=== PATIENT | female | born 1960 | race African-American/Black ===

== ENCOUNTER 2016-10-27 14:14 | Inpatient (IN) | payer OTHER ==
[2016-10-27 16:29] VITALS: BMI 25.7
--- NOTE | 2016-10-27 16:54 | HP ---
[id number] 4d 4-Moderate,w/Arms Extend Anxiety: 4-Mod. Anxious/Guarded Agitation: 4-Moderately Restless Paroxysmal Sweats: 1-Minimal Palms Moist Orientation: 1-Uncertain about Date Tacttile Disturbances: 0-None Auditory Disturbances: 0-None Visual Disturbances: 0-None Headache: 0-None Present CIWA-Ar Total Score: 15 Admission ROS BHS - HPI Chief Complaint: withdrawal sx Allergies/Adverse Reactions: Allergies Allergy/AdvReac Type Severity Reaction Status Date / Time Fish Containing Products Allergy Severe Hives Verified 10/27/16 16:50 No Known Drug Allergies Allergy Verified 10/27/16 16:50 History of Present Illness: 56 years old female with long history of alcohol cocaine marijuana nicotine dependence, has asthma, copd, hiv with neuropathy, hyperlipidemia and bipolar II IS ADMITTED TO DETOX Exam Limitations: No Limitations - Ebola screening Have you traveled outside of the country in the last 21 days: No Have you had contact with anyone from an Ebola affected area: No Have you been sick,other than usual withdrawal symptoms: No Do you have a fever: No - Review of Systems Constitutional: Chills, Changes in sleep, Weight Stable EENT: reports: Nose Congestion, Dental Problems (NO TEETH, NO DENTURE), Other ( EYE GLASSES) Respiratory: reports: SOB with Exertion, Productive cough Cardiac: reports: No Symptoms Reported GI: reports: Nausea, Poor Fluid Intake, Abdominal cramping : reports: No Symptoms Reported Musculoskeletal: reports: Back Pain, Joint Pain (RIGHT ANKLE FX BY HISTORY) Integumentary: reports: No Symptoms Reported Neuro: reports: Tingling (HANDS), Tremors Endocrine: reports: No Symptoms Reported Hematology: reports: No Symptoms Reported Psychiatric: reports: Judgement Intact, Anxious, Depressed Other Systems: Reviewed and Negative Patient History - Patient Medical History Hx Anemia: No Hx Asthma: Yes Hx Chronic Obstructive Pulmonary Disease (COPD): Yes Hx Cancer: No Hx Cardiac Disorders: No Hx Congestive Heart Failure: No Hx Hypertension: No Hx Hypercholesterolemia: Yes Hx Pacemaker: No HX Cerebrovascular Accident: No Hx Seizures: No Hx Dementia: No Hx Diabetes: No Hx Gastrointestinal Disorders: No Hx Liver Disease: No Hx Genitourinary Disorders: Yes (CHLAMYDIA,GC AND TRICHOMONAS.HSV) Hx Sexually Transmitted Disorders: Yes Hx Renal Disease (ESRD): No Hx Thyroid Disease: No Hx Human Immunodeficiency Virus (HIV): Yes (AIDS) Hx Hepatitis C: No Hx Depression: No Hx Suicide Attempt: Yes (TRIED TO SLASH WRIST) Hx Bipolar Disorder: Yes Hx Schizophrenia: No - Patient Surgical History Past Surgical History: Yes Hx Neurologic Surgery: No Hx Cataract Extraction: No Hx Cardiac Surgery: No Hx Lung Surgery: No Hx Breast Surgery: No Hx Breast Biopsy: No Hx Abdominal Surgery: No Hx Appendectomy: No Hx Cholecystectomy: No Hx Genitourinary Surgery: No Hx Section: No Hx Orthopedic Surgery: Yes (RT.ANKLE) Hx Hysterectomy: No Anesthesia Reaction: No - PPD History Previous Implant?: Yes Documented Results: Negative w/proof Implanted On Prior R Admission?: Yes Date: 11/30/14 PPD to be Administered?: Yes - Reproductive History Patient is a Female of Child Bearing Age (11 -55 yrs old): Yes Last Menstrual Period: 08/26/16 Patient : No - Smoking Cessation Smoking history: Current every day smoker Have you smoked in the past 12 months: Yes Aproximately how many cigarettes per day: 5 Cigars Per Day: 0 Hx Chewing Tobacco Use: No Initiated information on smoking cessation: Yes 'Breaking Loose' booklet given: 10/27/16 - Substance & Tx. History Hx Alcohol Use: Yes Hx Substance Use: Yes Substance Use Type: Alcohol, Cocaine, Marijuana Hx Substance Use Treatment: Yes - Substances Abused Cocaine Route: Inhalation Frequency: Daily Amount used: $100 Age of first use: 30 Date of Last Use: 10/24/16 Alcohol-whisky/beer Route: Oral Frequency: Daily Amount used: 1-2 pts./1-2 6pks. Age of first use: 14 Date of Last Use: 10/26/16 Marijuana Route: Smoking Frequency: Daily Amount used: $20 Age of first use: 21 Date of Last Use: 10/25/16 Family Disease History - Family Disease History Family Disease History: Diabetes: Mother, Heart Disease: Mother, Sister (ALCOHOL ), Other: Brother (ALCOHOL), Sister Admission Physical Exam BHS - Vital Signs Vital Signs: Vital Signs - 24 hr 10/27/16 16:26 Temperature 96.9 F L Pulse Rate 81 Respiratory 20 Rate Blood Pressure 106/69 - Physical General Appearance: Yes: Nourished, Appropriately Dressed, Mild Distress, Tremorous, Irritable, Sweating, Anxious HEENTM: Yes: Hearing grossly Normal, Normal ENT Inspection, Normocephalic, Normal Voice Respiratory: Yes: Chest Non-Tender, Lungs Clear, Normal Breath Sounds, No Respiratory Distress, No Accessory Muscle Use Neck: Yes: Supple, Trachea in good position Breast: Yes: Breasts Symetrical Cardiology: Yes: Regular Rhythm, Regular Rate, S1, S2 Abdominal: Yes: Non Tender, Soft Genitourinary: Yes: Within Normal Limits Back: Yes: Normal Inspection Musculoskeletal: Yes: full range of Motion, Gait Steady, Back pain, Muscle Pain (RIGHT ANKLE) Extremities: Yes: Normal Inspection, Normal Range of Motion, Non-Tender, Tremors Neurological: Yes: Alert, Motor Strength 5/5, Normal Response, Depressed Affect Integumentary: Yes: Warm Lymphatic: Yes: Within Normal Limits - Diagnostic (1) AIDS (acquired immune deficiency syndrome) Current Visit: Yes Status: Chronic (2) Asthma Current Visit: Yes Status: Chronic Qualifiers: Asthma severity: mild persistent Asthma complication type: with status asthmaticus Qualified Code(s): J45.32 - Mild persistent asthma with status asthmaticus (3) Hyperlipidemia Current Visit: Yes Status: Chronic Qualifiers: Hyperlipidemia type: pure hypercholesterolemia Qualified Code(s): E78.00 - Pure hypercholesterolemia, unspecified; E78.0 - Pure hypercholesterolemia (4) Alcohol dependence with uncomplicated withdrawal Current Visit: Yes Status: Acute (5) COPD (chronic obstructive pulmonary disease) Current Visit: Yes Status: Chronic Qualifiers: COPD type: emphysema Emphysema type: other Qualified Code(s): J43.8 - Other emphysema (6) 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 Current Visit: Yes Status: Chronic (7) GERD (gastroesophageal reflux disease) Current Visit: Yes Status: Chronic Qualifiers: Esophagitis presence: without esophagitis Qualified Code(s): K21.9 - Gastro-esophageal reflux disease without esophagitis (8) Dry eye Current Visit: Yes Status: Chronic (9) HSV infection Current Visit: Yes Status: Chronic (10) Toenail fungus Current Visit: Yes Status: Chronic Cleared for Admission BHS - Detox or Rehab S Level of Care: Medically Managed Detox Regimen/Protocol: Librium BHS Breath Alcohol Content Breath Alcohol Content: 0 Vital Signs - Vital Signs Vital Signs Refused: No Temperature: 96.9 F Temperature Source: Oral Pulse Rate: 81 Respiratory Rate: 20 Blood Pressure: 106/69 BP Location: Left Arm Blood Pressure Position: Sitting - Height Height: 5 ft 7 in - Weight Weight: 164 lb Weight Measurement Method: Standing Scale Body Mass Index (BMI): 25.7 - Bowel Function Bowel Movement: Yes Urine Pregancy Test - Result Urine Test Results: Negative- NO Line Present Urine Drug Screen - Control Is Test Valid: Yes - Results Drug Screen Negative: No Urine Drug Screen Results: THC-Marijuana, JACKIE-Cocaine
[2016-10-27] MEDS ORDERED: MAGNESIUM HYDROX 2400MG/30ML ORAL SUSPENSION 30 ML CUP PO PRN (17:03)
[2016-10-27] MEDS ORDERED: NICOTINE POLACRILEX 2 MG GUM BC PRN (17:03)
[2016-10-27] MEDS ORDERED: guaiFENesin/D-METHORPHAN HB 10 ML UNIT-DOSE CUPS PO PRN (17:03)
[2016-10-27] MEDS ORDERED: MAGNESIUM CITRATE 300 ML BOTTLE PO PRN (17:03)
[2016-10-27] MEDS ORDERED: MENTHOL/PHENOL 1 EACH UD MM PRN (17:03)
[2016-10-27] MEDS ORDERED: chlordiazePOXIDE HCL 25 MG CAPSULE PO PRN (17:03)
[2016-10-27] MEDS ORDERED: MAG HYDROX/AL HYDROX/SIMETH 30 ML UNIT-DOSE CUP PO PRN (17:03)
[2016-10-27] MEDS ORDERED: LOPERAMIDE HCL 2 MG CAPSULE PO PRN (17:03)
[2016-10-27] MEDS ORDERED: hydrOXYzine PAMOATE 50 MG CAPSULE (FP) PO PRN (17:03)
[2016-10-27] MEDS ORDERED: P-EPHED 60MG/TRIPROLIDI 2.5MG TABLET PO PRN (17:03)
[2016-10-27] MEDS ORDERED: diphenhydrAMINE HCL 50 MG CAPSULE PO PRN (17:03)
[2016-10-27] MEDS ORDERED: ALBUTEROL SO4 6.7 GM HFA INHALER IH PRN (17:05)
[2016-10-27] MEDS: ARTIFICIAL TEARS (POLYVINYL ALCOHOL 1.4%) OPTH DROPS OU SCH ×3 (19:30→22:25)
[2016-10-27] MEDS: ALBUTEROL SO4 2.5/IPRATROPIUM 0.5 INH SOL 3 ML VIAL.NEB. NEB PRN (20:11)
[2016-10-27] MEDS ORDERED: RANITIDINE HCL 150 MG TABLET (FP) PO SCH (22:00)
[2016-10-27] MEDS: MINERAL OIL/PETROLAT/WATER TOPICAL CREAM 113 GM JAR TP SCH (22:25)
[2016-10-27] MEDS: CLOTRIMAZOLE 1% CREAM 15 GM TUBE TP SCH (22:25)
[2016-10-27] MEDS: ACLIDINIUM BROMIDE 400 MCG/INH AERO.POWD IH SCH (22:35)
[2016-10-27] MEDS: chlordiazePOXIDE HCL 25 MG CAPSULE PO SCH (22:37)
[2016-10-27] MEDS: ATORVASTATIN CA 40 MG TABLET (FP) PO SCH (22:37)
[2016-10-27] MEDS: GABAPENTIN 300 MG CAPSULE (FP) PO SCH (22:37)
[2016-10-27] MEDS: THIAMINE HCL 100 MG TABLET (FP) PO SCH (22:37)
[2016-10-27 23:22] LABS: URINE APPEARANCE SLCLOUDY; URINE BILIRUBIN NEGATIVE (NEGATIVE); URINE BLOOD NEGATIVE (NEGATIVE); URINE COLOR YELLOW; URINE GLUCOSE (UA) NEGATIVE (NEGATIVE); URINE KETONE NEGATIVE (NEGATIVE); URINE LEUK ESTERASE NEGATIVE (NEGATIVE); URINE NITRITE NEGATIVE (NEGATIVE); URINE PROTEIN NEGATIVE (NEGATIVE); URINE UROBILINOGEN NEGATIVE E.U./dl (0.2-1.0)
[2016-10-28] MEDS: chlordiazePOXIDE HCL 25 MG CAPSULE PO SCH ×4 (06:01→22:33)
[2016-10-28] MEDS ORDERED: buPROPion HCL 100 MG TABLET PO ONE (09:10)
[2016-10-28] MEDS ORDERED: GABAPENTIN 300 MG CAPSULE (FP) PO SCH (10:00)
[2016-10-28] MEDS ORDERED: ERGOCALCIFEROL (VITAMIN D2) 50,000 UNIT CAPSULE (FP) PO SCH (10:00)
[2016-10-28 10:14] LABS: MCH 32.9 pg (25.7-33.7); MCHC 33.5 g/dl (32.0-36.0); MEAN CELL VOLUME 98.4 fl (80-96); PLATELET COUNT 363 K/MM3 (134-434); RDW 14.6 % (11.6-15.6)
--- NOTE | 2016-10-28 10:16 | CONSULT ---
[facility] Psychiatric Consult - Data Date of interview: 10/28/16 Admission source: [facility] Identifying data: This is 56 years old female with psychiatric hospitalization history, history of Schizoaffec tive disorder and PTSD, intoxicated with: Alcohol and Cocaine Substance Abuse History: - Smoking Cessation. Smoking history: Current every day smoker. Have you smoked in the past 12 months: Yes. Aproximately how many cigarettes per day: 5. Cigars Per Day: 0. Hx Chewing Tobacco Use: No. Initiated information on smoking cessation: Yes. 'Breaking Loose' booklet given : 10/27/16. - Substance & Tx. History. Hx Alcohol Use: Yes. Hx Substance Use : Yes. Substance Use Type: Alcohol, Cocaine, Marijuana. Hx Substance Use Treatment: Yes Medical History: AIDS, Asthma, COPD, Hyperlipidemia, HIV, HTN Psychiatric History: Patient report sto carry PTSD, as per comp[uterb there isn a history of chizaffective disorder with most recent admission on more then 10 years ago, reports taking prior to admission: Gabapentin 600mg po bid. Wellbutrin 100mg po bid Physical/Sexual Abuse/Trauma History: Denies Additional Comment: Gabapentin 600mg po bid. Wellbutrin 100mg po bid Mental Status Exam - Mental Status Exam Alert and Oriented to: Person Cognitive Function: Fair Patient Appearance: Unkempt Mood: Sad Affect: Flat Patient Behavior: Sedated Speech Pattern: Delayed Voice Loudness: Mildly Soft/Quiet Thought Process: Circumstantial Thought Disorder: Being Controlled Hallucinations: Denies Suicidal Ideation: Denies Homicidal Ideation: Denies Insight/Judgement: Fair Sleep: Difficulty falling asleep Appetite: Fair Muscle strength/Tone: Mild Hypotonicity Gait/Station: Shuffling Additional Comments: Gabapentin 600mg po bid. Wellbutrin 100mg po bid Psychiatric Findings - Problem List ([place] 1, 2,3) (1) Alcohol dependence with uncomplicated withdrawal Current Visit: Yes Status: Acute (2) Alcohol dependence Current Visit: No Status: Chronic (3) Cocaine dependence Current Visit: No Status: Chronic (4) PTSD (post-traumatic stress disorder) Current Visit: No Status: Chronic (5) Schizoaffective disorder, depressive type Current Visit: No Status: Suspected - Initial Treatment Plan Initial Treatment Plan: Gabapentin 600mg po bid. Wellbutrin 100mg po bid
[2016-10-28 10:31] LABS: ALBUMIN 3.8 g/dl (3.4-5.0); BILIRUBIN,TOTAL 0.4 mg/dL (0.2-1.0); CALCIUM 9.3 mg/dL (8.5-10.1); COCKROFT - GAULT 53.941; CREATININE 1.4 mg/dL (0.55-1.02); TOT PROT 7.2 g/dl (6.4-8.2)
--- NOTE | 2016-10-28 10:39 | PN ---
S CIWA - CIWA Score Nausea/Vomitin Muscle Tremors: 2 Anxiety: 3 Agitation: 2 Paroxysmal Sweats: 3 Orientation: 0-Oriented Tacttile Disturbances: 2-Mild Itch/Numbness/Burn Auditory Disturbances: 0-None Visual Disturbances: 0-None Headache: 2-Mild CIWA-Ar Total Score: 16 BHS Progress Note (SOAP) Subjective: interrupted sleep, sweats, headache ,bodyaches Objective: 10/28/16 10:36 Assessment: 10/28/16 10:42 withdrawal sx's Plan: cont. detox increase fluids abiola bandage ankle flexeril 10mg tid
[2016-10-28] MEDS: valACYclovir HCL 500 MG TABLET (FP) PO SCH (10:48)
[2016-10-28] MEDS: PRENATAL VITAMINS W/ FOLIC ACID TABLET (FP) PO SCH (10:48)
[2016-10-28] MEDS: ASPIRIN 81 MG CHEWABLE TABLETS PO SCH (10:48)
[2016-10-28] MEDS: GABAPENTIN 300 MG CAPSULE (FP) PO SCH ×2 (10:48→22:33)
[2016-10-28] MEDS: ARTIFICIAL TEARS (POLYVINYL ALCOHOL 1.4%) OPTH DROPS OU SCH ×4 (10:49→22:32)
[2016-10-28] MEDS: FLUTICASONE PROP 0.05% 16 GM NASAL SPRAY NS SCH (10:49)
[2016-10-28] MEDS: NICOTINE 14 MG/24 HOURS TOPICAL PATCH TD SCH (10:50)
[2016-10-28] MEDS: CLOTRIMAZOLE 1% CREAM 15 GM TUBE TP SCH ×2 (10:50→22:32)
[2016-10-28] MEDS: ACLIDINIUM BROMIDE 400 MCG/INH AERO.POWD IH SCH ×2 (10:51→22:33)
[2016-10-28] MEDS: buPROPion HCL 100 MG TABLET PO SCH ×2 (11:41→17:15)
[2016-10-28] MEDS: CYCLOBENZAPRINE HCL 10 MG TABLET (FP) PO PRN ×2 (11:42→22:33)
[2016-10-28] MEDS: CALCIUM 250MG/VIT-D 125 UNITS 1 COMBO TABLET PO SCH (11:42)
--- NOTE | 2016-10-28 12:50 | EKG ---
Test Reason : Blood Pressure : / mmHG Vent. Rate : 062 BPM Atrial Rate : 062 BPM P-R Int : 180 ms QRS Dur : 074 ms QT Int : 440 ms P-R-T Axes : 068 055 029 degrees QTc Int : 446 ms NORMAL SINUS RHYTHM POSSIBLE LEFT ATRIAL ENLARGEMENT SEPTAL INFARCT , AGE UNDETERMINED ABNORMAL ECG NO PREVIOUS ECGS AVAILABLE Confirmed by SANDRA MORALES MD ([id number]) on 10/28/2016 12:50:27 PM Referred By: Confirmed By:SANDRA MORALES MD
[2016-10-28] MEDS: RANITIDINE HCL 150 MG TABLET (FP) PO SCH ×2 (14:20→20:57)
[2016-10-28] MEDS: MINERAL OIL/PETROLAT/WATER TOPICAL CREAM 113 GM JAR TP SCH (22:32)
[2016-10-28] MEDS: ATORVASTATIN CA 40 MG TABLET (FP) PO SCH (22:33)
[2016-10-28] MEDS: THIAMINE HCL 100 MG TABLET (FP) PO SCH (22:34)
[2016-10-29] MEDS: chlordiazePOXIDE HCL 25 MG CAPSULE PO SCH ×3 (06:10→17:42)
[2016-10-29] MEDS: ACETAMINOPHEN 325 MG TABLET (FP) PO PRN ×2 (08:00→17:42)
--- NOTE | 2016-10-29 09:57 | PN ---
[facility] CIWA - CIWA Score Nausea/Vomitin Muscle Tremors: 3 Anxiety: 3 Agitation: 2 Paroxysmal Sweats: 1-Minimal Palms Moist Orientation: 0-Oriented Tacttile Disturbances: 1-Very Mild Itch/Numbness Auditory Disturbances: 1-Very Mild Visual Disturbances: 1-Very Mild Sensitivity Headache: 2-Mild CIWA-Ar Total Score: 17 BHS Progress Note (SOAP) Subjective: ALERT,IRRITABLE,ANXIOUS,INTERRUPTED SLEEP,PAIN IN THE LEFT ANKLE Objective: 10/29/16 09:55 Vital Signs Temperature 97.7 F 10/29/16 07:02 Pulse Rate 85 10/29/16 07:02 Respiratory Rate 16 10/29/16 07:02 Blood Pressure 124/84 10/29/16 07:02 O2 Sat by Pulse Oximetry (%) 10/29/16 09:55 Laboratory Last Values WBC 5.0 K/mm3 (4.0-10.0) 10/28/16 06:00 RBC 3.72 M/mm3 (3.60-5.2) 10/28/16 06:00 Hgb 12.2 GM/dL (10.7-15.3) 10/28/16 06:00 Hct 36.6 % (32.4-45.2) 10/28/16 06:00 MCV 98.4 fl (80-96) H 10/28/16 06:00 MCHC 33.5 g/dl (32.0-36.0) 10/28/16 06:00 RDW 14.6 % (11.6-15.6) 10/28/16 06:00 Plt Count 363 K/MM3 (134-434) D 10/28/16 06:00 MPV 9.0 fl (7.5-11.1) 10/28/16 06:00 Sodium 137 mmol/L (136-145) 10/28/16 06:00 Potassium 4.5 mmol/L (3.5-5.1) 10/28/16 06:00 Chloride 101 mmol/L (98-107) 10/28/16 06:00 Carbon Dioxide 25 mmol/L (21-32) 10/28/16 06:00 Anion Gap 11 (8-16) 10/28/16 06:00 BUN 12 mg/dL (7-18) 10/28/16 06:00 Creatinine 1.4 mg/dL (0.55-1.02) H D 10/28/16 06:00 Creat Clearance w eGFR 39.19 (>60) 10/28/16 06:00 Random Glucose 108 mg/dL (74-106) H 10/28/16 06:00 Calcium 9.3 mg/dL (8.5-10.1) 10/28/16 06:00 Total Bilirubin 0.4 mg/dL (0.2-1.0) D 10/28/16 06:00 AST 34 U/L (15-37) D 10/28/16 06:00 ALT 28 U/L (12-78) D 10/28/16 06:00 Alkaline Phosphatase 77 U/L (45-117) 10/28/16 06:00 Total Protein 7.2 g/dl (6.4-8.2) 10/28/16 06:00 Albumin 3.8 g/dl (3.4-5.0) 10/28/16 06:00 Urine Color Yellow 10/27/16 23:00 Urine Appearance Slcloudy 10/27/16 23:00 Urine pH 6.0 (5.0-8.0) 10/27/16 23:00 Ur Specific [place] 1.020 (1.005-1.025) 10/27/16 23:00 Urine Protein Negative (NEGATIVE) 10/27/16 23:00 Urine Glucose (UA) Negative (NEGATIVE) 10/27/16 23:00 Urine Ketones Negative (NEGATIVE) 10/27/16 23:00 Urine Blood Negative (NEGATIVE) 10/27/16 23:00 Urine Nitrite Negative (NEGATIVE) 10/27/16 23:00 Urine Bilirubin Negative (NEGATIVE) 10/27/16 23:00 Urine Urobilinogen Negative E.U./dl (0.2-1.0) 10/27/16 23:00 Ur Leukocyte Esterase Negative (NEGATIVE) 10/27/16 23:00 RPR Titer Nonreactive (NONREACTIVE) 10/28/16 06:00 Assessment: 10/29/16 09:56 WITHDRAWAL SYMPTOM Plan: CONTINUE DETOX,JEANNA BANDAGE LEFT ANKLE,ENCOURAGE ORAL FLUID
[2016-10-29] MEDS: ASPIRIN 81 MG CHEWABLE TABLETS PO SCH (10:38)
[2016-10-29] MEDS: CLOTRIMAZOLE 1% CREAM 15 GM TUBE TP SCH ×2 (10:39→22:24)
[2016-10-29] MEDS: GABAPENTIN 300 MG CAPSULE (FP) PO SCH ×2 (10:39→22:22)
[2016-10-29] MEDS: buPROPion HCL 100 MG TABLET PO SCH ×2 (10:39→17:42)
[2016-10-29] MEDS: PRENATAL VITAMINS W/ FOLIC ACID TABLET (FP) PO SCH (10:39)
[2016-10-29] MEDS: CYCLOBENZAPRINE HCL 10 MG TABLET (FP) PO PRN (10:39)
[2016-10-29] MEDS: FLUTICASONE PROP 0.05% 16 GM NASAL SPRAY NS SCH (10:39)
[2016-10-29] MEDS: ACLIDINIUM BROMIDE 400 MCG/INH AERO.POWD IH SCH ×2 (10:40→22:23)
[2016-10-29] MEDS: ARTIFICIAL TEARS (POLYVINYL ALCOHOL 1.4%) OPTH DROPS OU SCH ×4 (10:40→22:24)
[2016-10-29] MEDS: CALCIUM 250MG/VIT-D 125 UNITS 1 COMBO TABLET PO SCH (10:40)
[2016-10-29] MEDS: valACYclovir HCL 500 MG TABLET (FP) PO SCH (10:40)
[2016-10-29] MEDS: NICOTINE 14 MG/24 HOURS TOPICAL PATCH TD SCH (10:40)
--- NOTE | 2016-10-29 13:23 | PN ---
Psychiatric Progress Note Vital Signs: Vital Signs Period Temp Pulse Resp BP Sys/Song Pulse Ox Last 24 Hr 96.8 F-98.2 F 76-93 16-18 105-124/69-85 Date of Session: 10/29/16 Chief Complaint:: Insomnia HPI: Patient reports insomnia, reports taking prior to admission Seroquel 50mg po qhs with good response Current Medications: Active Medications Generic Name Dose Route Start Last Admin Trade Name Freq PRN Reason Stop Dose Admin Acetaminophen 650 mg 10/27/16 17:03 10/29/16 08:00 Tylenol - PO 650 mg Q4H PRN Administration FEVER OR PAIN Aclidinium Tripp 1 puff 10/27/16 22:00 10/29/16 10:40 Tudorza - IH 1 inh BID NANCY Administration Al Hydroxide/Mg Hydroxide 30 ml 10/27/16 17:03 Mylanta Oral Suspension - PO Q6H PRN DYSPEPSIA Albuterol Sulfate 2 puff 10/27/16 17:05 Ventolin Hfa Inhaler - IH Q4H PRN SHORT OF BREATH/WHEEZING Albuterol/Ipratropium 1 amp 10/27/16 17:05 10/27/16 20:11 Duoneb - NEB 1 amp Q6H PRN Administration SHORTNESS OF BREATH Artificial Tears 1 drop 10/27/16 18:00 10/29/16 13:19 Artificial Tears OU Not Given QID NANCY Aspirin 81 mg 10/28/16 10:00 10/29/16 10:38 Asa - PO 81 mg DAILY NNACY Administration Atorvastatin Calcium 40 mg 10/27/16 22:00 10/28/16 22:33 Lipitor - PO 40 mg HS NANCY Administration Bupropion HCl 100 mg 10/28/16 10:00 10/29/16 10:39 Wellbutrin - PO 100 mg BID@1000,1800 NANCY Administration Calcium/Vitamin D 1 tab 10/28/16 10:00 10/29/16 10:40 Oscal 250 Mg+D - PO 1 tab DAILY NANCY Administration Chlordiazepoxide HCl 10 mg 10/30/16 23:00 Librium - PO 10/31/16 17:01 [id number] NANCY Chlordiazepoxide HCl 25 mg 10/27/16 17:03 10/27/16 19:19 Librium - PO 10/30/16 17:02 25 mg Q4H PRN Administration WITHDRAWAL(CONT SUBST) Chlordiazepoxide HCl 25 mg 10/28/16 23:00 10/29/16 10:39 Librium - PO 10/29/16 17:01 25 mg [id number] NANCY Administration Chlordiazepoxide HCl 15 mg 10/29/16 23:00 Librium - PO 10/30/16 17:01 P1M-HNE NANCY Clotrimazole 1 applic 10/27/16 22:00 10/29/16 10:39 Lotrimin 1% Cream - TP 1 applic BID NANCY Administration Cyclobenzaprine HCl 10 mg 10/28/16 09:56 10/29/16 10:39 Flexeril - PO 10 mg TID PRN Administration MUSCLE SPASMS Diphenhydramine HCl 50 mg 10/27/16 17:03 Benadryl - PO HSMR1 PRN INSOMNIA Ergocalciferol 50,000 unit 10/28/16 10:00 10/28/16 10:49 Drisdol - PO 50,000 unit We@1000 NANCY Administration Eucalyptus/Menthol/Phenol/Sorbitol 1 each 10/27/16 17:03 Cepastat Lozenge - MM Q4H PRN SORE THROAT Fenofibric Acid 135 mg 10/30/16 10:00 Trilipix - PO DAILY NANCY Fluticasone Propionate 1 spray 10/28/16 10:00 10/29/16 10:39 Flonase - NS 1 spray DAILY NANCY Administration Gabapentin 600 mg 10/27/16 22:00 10/29/16 10:39 Neurontin - PO 600 mg BID NANCY Administration Guaifenesin 10 ml 10/27/16 17:03 Robitussin Dm - PO Q6H PRN COUGH Hydroxyzine Pamoate 50 mg 10/27/16 17:03 Vistaril - PO Q4H PRN AGITATION Loperamide HCl 4 mg 10/27/16 17:03 Imodium - PO Q6H PRN DIARRHEA Magnesium Citrate 300 ml 10/27/16 17:03 Citroma - PO Q48H PRN CONSTIPATION Magnesium Hydroxide 30 ml 10/27/16 17:03 Milk Of Magnesia - PO DAILY PRN CONSTIPATION Multi-Ingredient Lotion 1 applic 10/27/16 22:00 10/28/16 22:32 Eucerin (Small Jar) - TP 1 applic HS NANCY Administration Nicotine 14 mg 10/28/16 10:00 10/29/16 10:40 Nicoderm Patch - TD Not Given DAILY NANCY Nicotine Polacrilex 2 mg 10/27/16 17:03 Nicorette Gum - BC Q2H PRN NICOTINE REPLACEMENT RX Non-Formulary Medication 1 each 10/28/16 09:00 10/29/16 07:17 Emtricitab/Rilpivirine/Tenofov [Complera Tablet -] PO 1 each DAILY@0800 NANCY Administration Multivit/Folic Acid/Iron 1 tab 10/28/16 10:00 10/29/16 10:39 Vitamins (Sjr) - PO 1 tab DAILY NANCY Administration Pseudoephedrine/Triprolidine 1 combo 10/27/16 17:03 10/29/16 10:43 Actifed - PO 1 combo TID PRN Administration NASAL CONGESTION Ranitidine HCl 150 mg 10/30/16 12:00 Zantac - PO DAILY@1200 NANCY Thiamine HCl 100 mg 10/27/16 22:00 10/28/16 22:34 Vitamin B1 - PO 100 mg HS NANCY Administration Valacyclovir HCl 500 mg 10/28/16 10:00 10/29/16 10:40 Valtrex - PO 500 mg DAILY NANCY Administration Medication(s) Change(s): Seroquel 50mg po qhs Mental Status Exam - Mental Status Exam Alert and Oriented to: Person Cognitive Function: Fair Patient Appearance: Unkempt Mood: Anxious Affect: Mood Congruent Patient Behavior: Cooperative Speech Pattern: Appropriate Voice Loudness: Normal Thought Process: Goal Oriented Thought Disorder: Being Controlled Hallucinations: Denies Suicidal Ideation: Denies Homicidal Ideation: Denies Insight/Judgement: Fair Sleep: Difficulty falling asleep Appetite: Fair Muscle strength/Tone: Normal Gait/Station: Normal Additional Comments: Seroquel 50mg po qhs Psychiatric Treatment Plan - Problem List (1) Alcohol dependence with uncomplicated withdrawal Current Visit: Yes (2) Alcohol dependence Current Visit: No (3) Cocaine dependence Current Visit: No (4) PTSD (post-traumatic stress disorder) Current Visit: No (5) Schizoaffective disorder, depressive type Current Visit: No Initial treatment plan: Seroquel 50mg po qhs
[2016-10-29] MEDS: THIAMINE HCL 100 MG TABLET (FP) PO SCH (22:22)
[2016-10-29] MEDS: QUEtiapine FUMARATE 100 MG TABLET (FP) PO SCH (22:22)
[2016-10-29] MEDS: chlordiazePOXIDE 5 MG CAPSULE PO SCH (22:22)
[2016-10-29] MEDS: ATORVASTATIN CA 40 MG TABLET (FP) PO SCH (22:22)
[2016-10-29] MEDS: MINERAL OIL/PETROLAT/WATER TOPICAL CREAM 113 GM JAR TP SCH (22:23)
[2016-10-30] MEDS: chlordiazePOXIDE 5 MG CAPSULE PO SCH ×3 (06:01→17:31)
[2016-10-30 10:18] LABS: ALBUMIN 3.2 g/dl (3.4-5.0); BILIRUBIN,TOTAL 0.3 mg/dL (0.2-1.0); CALCIUM 9.2 mg/dL (8.5-10.1); COCKROFT - GAULT 62.934; CREATININE 1.2 mg/dL (0.55-1.02); TOT PROT 6.2 g/dl (6.4-8.2)
--- NOTE | 2016-10-30 10:25 | PN ---
BHS Progress Note (SOAP) Subjective: ALERT,IRRITABLE,ANXIOUS,INTERRUPTED SLEEP,PAIN IN BOTH ANKLE Objective: 10/30/16 10:24 Vital Signs Temperature 98.1 F 10/30/16 06:00 Pulse Rate 83 10/30/16 06:00 Respiratory Rate 18 10/30/16 06:00 Blood Pressure 108/67 10/30/16 06:00 O2 Sat by Pulse Oximetry (%) Assessment: 10/30/16 10:25 WITHDRAWAL SYMPTOM Plan: CONTINUE DETOX,REPEAT CMP PENDING,DISCHARGE IN AM
[2016-10-30] MEDS: ASPIRIN 81 MG CHEWABLE TABLETS PO SCH (10:29)
[2016-10-30] MEDS: valACYclovir HCL 500 MG TABLET (FP) PO SCH (10:30)
[2016-10-30] MEDS: GABAPENTIN 300 MG CAPSULE (FP) PO SCH ×2 (10:30→22:30)
[2016-10-30] MEDS: CYCLOBENZAPRINE HCL 10 MG TABLET (FP) PO PRN (10:30)
[2016-10-30] MEDS: NICOTINE 14 MG/24 HOURS TOPICAL PATCH TD SCH (10:30)
[2016-10-30] MEDS: ACLIDINIUM BROMIDE 400 MCG/INH AERO.POWD IH SCH ×2 (10:30→22:49)
[2016-10-30] MEDS: buPROPion HCL 100 MG TABLET PO SCH ×2 (10:30→17:31)
[2016-10-30] MEDS: PRENATAL VITAMINS W/ FOLIC ACID TABLET (FP) PO SCH (10:30)
[2016-10-30] MEDS: CLOTRIMAZOLE 1% CREAM 15 GM TUBE TP SCH ×2 (10:31→22:32)
[2016-10-30] MEDS: CALCIUM 250MG/VIT-D 125 UNITS 1 COMBO TABLET PO SCH (10:31)
[2016-10-30] MEDS: FLUTICASONE PROP 0.05% 16 GM NASAL SPRAY NS SCH (10:31)
[2016-10-30] MEDS: ARTIFICIAL TEARS (POLYVINYL ALCOHOL 1.4%) OPTH DROPS OU SCH ×4 (10:31→22:31)
[2016-10-30] MEDS: FENOFIBRIC ACID 135 MG CAP PO SCH (10:32)
[2016-10-30] MEDS: ALBUTEROL SO4 2.5/IPRATROPIUM 0.5 INH SOL 3 ML VIAL.NEB. NEB PRN (11:34)
[2016-10-30] MEDS: RANITIDINE HCL 150 MG TABLET (FP) PO SCH (11:36)
[2016-10-30] MEDS: THIAMINE HCL 100 MG TABLET (FP) PO SCH (22:30)
[2016-10-30] MEDS: chlordiazePOXIDE HCL 10 MG CAPSULE PO SCH (22:30)
[2016-10-30] MEDS: MINERAL OIL/PETROLAT/WATER TOPICAL CREAM 113 GM JAR TP SCH (22:30)
[2016-10-30] MEDS: QUEtiapine FUMARATE 100 MG TABLET (FP) PO SCH (22:30)
[2016-10-30] MEDS: ATORVASTATIN CA 40 MG TABLET (FP) PO SCH (22:30)
[2016-10-31] MEDS: chlordiazePOXIDE HCL 10 MG CAPSULE PO SCH (05:25)
[2016-10-31 07:01] VITALS: TEMP 97.5
--- NOTE | 2016-10-31 10:17 | PN ---
S Progress Note (SOAP) Subjective: ALERT,NO COMPLAINT Objective: 10/31/16 10:16 Vital Signs Temperature 97.5 F L 10/31/16 07:01 Pulse Rate 63 10/31/16 07:01 Respiratory Rate 18 10/31/16 07:01 Blood Pressure 93/62 10/31/16 07:01 O2 Sat by Pulse Oximetry (%) Assessment: 10/31/16 10:16 DETOX COMPLETED,NO WITHDRAWAL SYMPTOM Plan: DISCHARGE TODAY,FOLLOW UP WITH AFTER CARE PROGRAM ARRANGEMENT
--- NOTE | 2016-10-31 10:20 | DS ---
[facility] Detox Discharge Summary Admission Date: 10/27/16 Discharge Date: 10/31/16 - History Present History: Alcohol Dependence, Cocaine Dependence Additional Comments: FOLLOW UP WITH AFTER [facility] PROGRAM ARRANGEMENT AND PMD FOR MEDICAL PROBLEM Pertinent Past History: AIDS ASTHMA C OPD HYPERLIPIDEMIA NEUROPATHY GERD - Physical Exam Results Vital Signs: Vital Signs Temperature 97.5 F L 10/31/16 07:01 Pulse Rate 63 10/31/16 07:01 Respiratory Rate 18 10/31/16 07:01 Blood Pressure 93/62 10/31/16 07:01 O2 Sat by Pulse Oximetry (%) Pertinent Admission Physical Exam Findings: WITHDRAWAL SYMPTOM - Treatment Hospital Course: Detox Protocol Followed, Detoxed Safely, Responded well, Discharged Condition Good, Rehab Referral Accepted Patient has Accepted a Rehab Referral to: [facility] - Medication Discharge Medications: Ambulatory Orders Albuterol Sulfate Inhaler - [Ventolin HFA Inhaler -] 2 inh PO Q4H PRN 11/28/14 Calcium Carbonate/Vitamin D3 [[place] 500+D Tablet] 1 each PO BID 11/28/14 Emtricitab/Rilpivirine/Tenofov [Complera -] 1 each PO DAILY 11/28/14 Ergocalciferol (Vitamin D2) [Vitamin D] 50,000 unit PO WEEKLY 11/28/14 Fenofibrate Nanocrystallized [Fenofibrate] 145 mg PO DAILY 11/28/14 Olopatadine HCl [Patanol] 1 drop OP BID 11/28/14 Printer-3 Fatty Acids [Printer-3] 1,000 mg PO DAILY 11/28/14 Tiotropium [place] [Spiriva -] 1 inh IH DAILY 11/28/14 Valacyclovir HCl [Valtrex -] 500 mg PO DAILY 11/28/14 Bupropion HCl [Wellbutrin -] 200 mg PO DAILY #60 12/12/14 Gabapentin [Neurontin] 600 mg PO BID #60 12/12/14 Aspirin [ASA -] 81 mg PO DAILY 10/27/16 Fluticasone Propionate [Flovent Diskus] 1 spray IH DAILY 10/27/16 Tetrahydrozoline HCl [Visine -] 1 drop OU QID 10/27/16 Bupropion HCl [Bupropion HCl Sr] 200 mg PO DAILY #60 tablet.er 10/28/16 Gabapentin [Neurontin -] 600 mg PO BID #60 cap 10/28/16 Quetiapine Fumarate [Seroquel] 50 mg PO HS #30 tablet 10/29/16 - AMA Did Patient Leave Against Medical Advice: No
[2016-10-31 10:27] VITALS: BP 98/69; PULSE 91
[2016-10-31] MEDS: PRENATAL VITAMINS W/ FOLIC ACID TABLET (FP) PO SCH (11:12)
[2016-10-31] MEDS: buPROPion HCL 100 MG TABLET PO SCH (11:12)
[2016-10-31] MEDS: GABAPENTIN 300 MG CAPSULE (FP) PO SCH (11:12)
[2016-10-31] MEDS: valACYclovir HCL 500 MG TABLET (FP) PO SCH (11:12)
[2016-10-31] MEDS: RANITIDINE HCL 150 MG TABLET (FP) PO SCH (11:12)
[2016-10-31] MEDS: FENOFIBRIC ACID 135 MG CAP PO SCH (11:12)
[2016-10-31] MEDS: ASPIRIN 81 MG CHEWABLE TABLETS PO SCH (11:12)
[2016-10-31] MEDS: CALCIUM 250MG/VIT-D 125 UNITS 1 COMBO TABLET PO SCH (11:13)
[2016-10-31] MEDS: NICOTINE 14 MG/24 HOURS TOPICAL PATCH TD SCH (11:14)
== END 2016-10-31 11:18 | disposition home or self-care (01) | DRG 774 ==
LOC: YASAS 14:14 → Y6N 18:30
PROVIDERS: ADMIT Internal Medicine Addiction Medicine; ATTEND Internal Medicine Addiction Medicine
PROC: HZ2ZZZZ Detoxification Services for Substance Abuse Treatment (ICD-10-PCS; principal; 2016-10-31)
DX: F10.230 Alcohol dependence with withdrawal, uncomplicated (principal); F14.20 Cocaine dependence, uncomplicated; F43.10 Post-traumatic stress disorder, unspecified; F25.9 Schizoaffective disorder, unspecified; J44.9 Chronic obstructive pulmonary disease, unspecified; B20 Human immunodeficiency virus [HIV] disease; B00.9 Herpesviral infection, unspecified; E78.5 Hyperlipidemia, unspecified
CPT/HCPCS: 36415; 80053; 80061; 81003; 83721; 85027; 86593; 93005; 93010; 94640